=== PATIENT | male | born 1970 | race Caucasian/White ===

== ENCOUNTER → 2023-01-21 | Outpatient (CLI) | payer OTHER ==
--- NOTE | 2023-01-21 10:56 | Diagnostic Imaging Report ---
PROCEDURE: US Abdomen, limited. TECHNIQUE: Multiple realtime grayscale images were obtained over the abdomen in various projections. INDICATION: Elevated liver enzymes The liver has increased echogenicity consistent with fatty infiltration. Portal vein is patent with hepatopetal flow. The gallbladder is clear with no stones or wall thickening. The common duct was obscured by bowel gas. The aorta, pancreas and IVC were obscured by bowel gas. Right kidney measures 11.2 cm in length and appears normal. There is no ascites. IMPRESSION: Hepatic steatosis Dictated by: Dictated on workstation # [id number]
== END ==
LOC: RAD 08:43
DX: Z01.89 Encounter for other specified special examinations (principal); K76.0 Fatty (change of) liver, not elsewhere classified
CPT/HCPCS: 76705